=== PATIENT | male | born 1985 | race African-American/Black ===

== ENCOUNTER 2018-12-06 16:00 | Emergency (ER) | payer BC ==
[~2018-12-06] VITALS: Ht 175.3 cm; Wt 123.4 kg
[2018-12-06] MEDS ORDERED: SINGULAIR 10 MG10 M1 PO (16:08)
[2018-12-06] MEDS ORDERED: PROAIR HFA8.5 GM PO (16:09)
[2018-12-06 16:17] LABS: ABSOLUTE EOSINOPHILS 0.4 thou/uL (0.0-0.7); ABSOLUTE LYMPHOCYTES 1.8 thou/uL (0.8-5.3); ABSOLUTE MONOCYTES 0.4 thou/uL (0.0-1.2); ABSOLUTE NEUTROPHILS 3.5 thou/uL (1.6-8.1); BASOPHILS 0.8 %; EOSINOPHILS 5.8 %; HEMATOCRIT 41.5 % (42.0-52.0); HEMOGLOBIN 13.8 gm/dL (14.0-18.0); LYMPHOCYTES 28.8 %; MCH 30.5 pg (26.0-34.0); MCHC 33.3 g/dL (28.0-37.0); MCV 91.5 fL (80.0-100.0); MONOCYTES 6.4 %; MPV 9.9 fl. (7.2-11.1); NUCLEATED RBCS 0 /100WBC; PLATELET COUNT* 149 thou/uL (150-400); POLYS 58.2 %; RBC 4.54 mil/uL (4.50-6.00); RDW-CV 13.2 % (10.5-14.5); WBC 6.1 thou/uL (4.0-11.0)
[2018-12-06 16:32] LABS: ANION GAP 9 mmol/L (7-16); BUN 16 mg/dL (7-18); CALCIUM 9.9 mg/dL (8.5-10.1); CHLORIDE 107 mmol/L (98-107); CO2 27 mmol/L (21-32); CREATININE 1.2 mg/dL (0.6-1.3); GLUCOSE 77 mg/dL (70-99); POTASSIUM 3.7 mmol/L (3.5-5.1); SODIUM 143 mmol/L (136-145)
[2018-12-06 16:36] LABS: ALBUMIN 3.8 g/dL (3.4-5.0); ALKALINE PHOSPHATASE 87 U/L (46-116); SGOT 24 U/L (15-37); SGPT 32 U/L (30-65); TOTAL BILIRUBIN 0.5 mg/dL (<0.1-1.0); TOTAL PROTEIN 7.3 g/dL (6.4-8.2); TROPONIN-I LEVEL <0.06 ng/mL (<0.06)
[2018-12-06] MEDS ORDERED: HYDROCODONE-AP1 EAC6 PO (16:38)
[2018-12-06 16:46] VITALS: BP 125/69
--- NOTE | 2018-12-07 12:56 | EKG ---
[place] [address] ELECTROCARDIOGRAM REPORT Name: CAITLIN ROJAS Room: [facility]#: [id number] Admission: 12/06/18 Attend Phys: Discharge: 12/06/18 Date of : 85 Report #: [id number] THIS REPORT FOR: //name// [facility] ED Test Date: 2018-12-06 Test Time: 16:04:25 Pat Name: CAITLIN ROJAS Department: Room: Gender: M Video Effects Editor: Rehan HUGO : 1985 Requested By: Alvin Falcon Order Number: [id number] MD: Dmitriy Sahni Measurements Intervals [place] Rate: 58 P: 44 WA: 227 QRS: 49 QRSD: 97 T: 28 QT: 375 QTc: 369 Interpretive Statements Sinus rhythm Prolonged [place] interval No previous ECG available for comparison Electronically Signed On 12-07-2018 12:56:06 CDT by Dmitriy Sahni [email or web address] <ELECTRONICALLY SIGNED> By: Dmitriy Sahni MD, MERGED WITH [facility] 12/07/18 1256 1604 1604 Dmitriy Sahni MD, FACC /EPI
== END 2018-12-06 17:03 | disposition home or self-care (01) ==
LOC: M.ERS 16:00
PROVIDERS: Emergency Medicine Emergency Medical Services
DX: M94.0 Chondrocostal junction syndrome [Tietze] (principal); J45.909 Unspecified asthma, uncomplicated